=== PATIENT | female | born 1950 ===

== ENCOUNTER 2017-06-09 14:27 | Emergency (ER) | payer BC ==
[~2017-06-09 14:27] MED LIST: Iopamidol 370 76% 50 ML VIAL FS ONE
[2017-06-09 14:55] LABS: #Eosinphils 0.2 thou/uL (0.0-0.7); #Lymphocytes 1.9 thou/uL (1.20-3.40); #Monocytes 0.4 thou/uL (0.11-0.59); #Neutrophils 2.7 thou/uL (1.40-6.50); %Basophils 0.5 % (0.0-1.0); %Eosinophils 2.9 % (0.0-10.0); %Monocytes 8.4 % (0.0-10.0); Hematocrit 39.2 % (36.0-47.0); Mean Platelet Volume 8.8 fL (7.4-10.4); Red Blood Cell (RBC) Count 4.49 mill/uL (4.20-5.40); White Blood Cell (WBC) Count 5.2 thou/uL (4.8-10.8)
[2017-06-09 15:07] LABS: Bilirubin Negative (Negative); Blood, Urine Negative (Negative); Glucose, Urine (Dipstick) Negative (Negative); Ketone, Urine Negative (Negative); Nitrite Negative (Negative); Protein, Urine (Dipstick) Negative (Neg-Trace); Urobilinogen 0.2 mg/dL (0.2-1.0)
[2017-06-09 15:15] LABS: ALT (SGPT) 25 U/L (8-55); AST (SGOT) 30 U/L (5-34); Alkaline Phosphatase 85 U/L (40-150); Anion Gap 14 mmol/L (10-20); BUN (Urea Nitrogen) 39 mg/dL (9.8-20.1); Bilirubin, Total 0.7 mg/dL (0.2-1.2); Calc. Creatinine Clearance 0 mL/min (70-130); Calcium 9.6 mg/dL (7.8-10.44); Carbon Dioxide 26 mmol/L (23-31); Chloride 97 mmol/L (98-107); Estimated GFR-MDRD 29; Globulin 3.3 g/dL (2.4-3.5); Lipase 77 U/L (8-78)
[2017-06-09] MEDS ORDERED: Ondansetron HCl/PF 4 MG/2 ML Vial ONE (16:06)
[2017-06-09] MEDS ORDERED: Dicyclomine 20 MG TAB ONE (16:06)
[2017-06-09] MEDS ORDERED: Mag-Al 1200 mg/1200 mg/30 ML UDCUP ONE (16:06)
[2017-06-09] MEDS ORDERED: Lidocaine Viscous Sol 2% 15 ml UD Cup ONE (16:06)
[2017-06-09] MEDS ORDERED: Famotidine/PF 20 mg/2ml Vial ONE (16:35)
--- NOTE | 2017-06-09 16:45 | ULT ---
GALLBLADDER ULTRASOUND: Date: 06/09/17 HISTORY: Abdominal pain. COMPARISON: None. TECHNIQUE: Utilizing a multihertz transducer, sonographic imaging of the right upper quadrant was performed in t he longitudinal and transverse plane. FINDINGS: Pancreas obscured by bowel gas. Heterogeneous echotexture of the liver due to hepatic steatosis or hepatocellular disease. Subsequent evaluation for hepatic masses and intrahepatic biliary dilatation limited. Right hepatic lobe measur es 16.1 cm. Main portal vein is patent. Appropriate direction of flow. Common bile duct diameter is 0.6 cm. Sludge within the lumen of the gallbladder. No evidence of cholelithiasis. Gallbladder wall is not th ickened. No pericholecystic fluid. Negative Boykin's sign. Right kidney with normal cortical echotexture. No hydronephrosis. 8.7 x 4.5 x 4.5 cm. IMPRESSION: 1. Sludge within the lumen of the gallbladder. No sonographic evidence of cholecystitis. 2. Common bile duct diameter at 0.6 cm. Common bile duct diameter is within normal limits for a beti ent of this age. POS: [facility]
--- NOTE | 2017-06-09 18:15 | CT ---
CT ABDOMEN AND PELVIS WITHOUT CONTRAST: Date: 06/09/17 HISTORY: Abdominal pain. Dysuria. COMPARISON: None. FINDINGS: Mild atelectatic changes in the lung bases. There are a few tree-in-bud opacities within both lung ba ses. No pericardial effusion. Gallbladder is normal. No nephroureterolithiasis or hydroureteronephrosis. No secondary evidence of a recently passed stone. There appears to be either a dilated freddy of the inferior pole left kidney versus a cyst, although a dilated freddy with scarred overlying cortex if felt more likely. No dilated loops of large or small bowel. Appendix is visualized and is normal. Severe degenerative disc space disease at L5-S1 with facet arthrosis. Moderate degenerative disease of the pubic symphysis. Mild diastasis recti. IMPRESSION: 1. A few tree-in-bud opacities both lower lobes, either sequelae of aspiration or early infection. 2. No acute inflammatory process within the abdomen or pelvis. 3. No nephroureterolithiasis or hydroureteronephrosis. No secondary evidence of recently passed ston e. 4. Likely a focal dilated ballooned-out freddy of the inferior pole of left kidney with overlying debby al cortical scarring, limited without intravenous contrast. Cyst is also within the differential. 5. Punctate area of likely calcification within possible cyst superior pole left kidney versus less likely a renal calculus. 6. Normal appendix. 7. Mild anterolisthesis of L5 over S1 due to severe facet arthropathy. POS: [facility]
== END 2017-06-09 19:32 | disposition home or self-care (01) ==
LOC: ERS 14:27
DX: R10.11 Right upper quadrant pain (principal); E78.5 Hyperlipidemia, unspecified; E03.9 Hypothyroidism, unspecified; I10 Essential (primary) hypertension
CPT/HCPCS: 36415; 74176; 76705; 80053; 81003; 83690; 85025; 87086; 96361; 96374; 96375; J2405; S0028

== ENCOUNTER 2018-01-15 10:59 | Outpatient (CLI) | payer SELFPAY ==
--- NOTE | 2018-01-19 09:59 | MMO ---
BILATERAL SCREENING MAMMOGRAM: Date: 01/15/18 INDICATION: Annual exam. COMPARISON: Prior exam dated 02/19/13. FINDINGS: Interpretation of this exam was assisted with computer-aided detection. The breast parenchyma is heterogeneously dense. There are vascular calcifications bilaterally. No suspicious mass, cluster of microcalcifications, or area of architectural distortion is identified . IMPRESSION: BIRADS 2: Benign Finding(s) Recommend routine annual mammographic screening. POS: [facility]
== END 2018-01-15 11:00 | disposition home or self-care (01) ==
LOC: SCSMAMMO 10:59
PROVIDERS: ATTEND Nurse Practitioner Family
DX: Z12.31 Encounter for screening mammogram for malignant neoplasm of breast (principal)
CPT/HCPCS: 77067